=== PATIENT | female | born 1960 | race Caucasian/White ===

== ENCOUNTER → 2024-08-07 13:02 | Outpatient (REF) | payer OTHER, SELFPAY | LOC: RCS 13:02 | PROVIDERS: ATTENDING PHYSICIAN Internal Medicine Geriatric Medicine | DX: E03.9 Hypothyroidism, unspecified (principal); G35 Multiple sclerosis; R00.2 Palpitations; E55.9 Vitamin D deficiency, unspecified; Z13.31 Encounter for screening for depression; Z76.89 Persons encountering health services in other specified circumstances | CPT/HCPCS: 93225; 93226 ==

== ENCOUNTER 2024-09-09 06:19 | Day surgery (SDC) | payer OTHER, SELFPAY | END 2024-09-09 14:42 | disposition home or self-care (01) | LOC: GI 06:19 | PROVIDERS: ATTENDING PHYSICIAN Internal Medicine Gastroenterology | DX: Z12.11 Encounter for screening for malignant neoplasm of colon (principal); K64.4 Residual hemorrhoidal skin tags; K64.8 Other hemorrhoids; R12 Heartburn; R11.0 Nausea; K29.50 Unspecified chronic gastritis without bleeding | CPT/HCPCS: 43239; G0121; 88305; 88342 ==